=== PATIENT | male | born 1980 | race African-American/Black ===

== ENCOUNTER 2018-04-28 17:11 | Emergency (ER) | payer BC ==
[2018-04-28 17:41] LABS: #Basophils 0.1 thou/uL (0.0-0.2); #Eosinphils 0.2 thou/uL (0.0-0.7); #Lymphocytes 2.1 thou/uL (1.20-3.40); #Monocytes 0.4 thou/uL (0.11-0.59); #Neutrophils 2.7 thou/uL (1.40-6.50); %Basophils 1.5 % (0.0-1.0); %Lymphocytes 38.8 % (21.0-51.0); %Monocytes 6.7 % (0.0-10.0); Hemoglobin 15.3 g/dL (14.0-18.0); Mean Corpuscular HGB CONC 32.8 g/dL (32.0-36.0); Mean Corpuscular Hemoglobin 31.1 pg (27.0-31.0); Mean Corpuscular Volume 94.8 fL (78.0-98.0); Mean Platelet Volume 7.6 fL (7.4-10.4); Platelet Count 234 thou/uL (130-400); RBC Distribution Width 12.3 % (11.5-14.5); Red Blood Cell (RBC) Count 4.91 mill/uL (4.70-6.10); White Blood Cell (WBC) Count 5.4 thou/uL (4.8-10.8)
[2018-04-28 17:55] LABS: ALT (SGPT) 28 U/L (8-55); AST (SGOT) 21 U/L (5-34); Albumin 4.1 g/dL (3.5-5.0); Alkaline Phosphatase 70 U/L (40-150); Anion Gap 12 mmol/L (10-20); BUN (Urea Nitrogen) 22 mg/dL (8.9-20.6); Bilirubin, Total 0.6 mg/dL (0.2-1.2); Calc. Creatinine Clearance 0 mL/min (70-130); Calcium 9.1 mg/dL (7.8-10.44); Carbon Dioxide 24 mmol/L (22-29); Chloride 107 mmol/L (98-107); Estimated GFR-MDRD 73; Globulin 2.9 g/dL (2.4-3.5); Glucose 147 mg/dL (70-105); Lipase 13 U/L (8-78); Potassium 3.8 mmol/L (3.5-5.1); Sodium 139 mmol/L (136-145)
[2018-04-28 17:55] LABS: Bilirubin Negative (Negative); Blood, Urine Negative (Negative); Clarity CLEAR (Clear); Glucose, Urine (Dipstick) Negative (Negative); Leukocyte Negative (Negative); Nitrite Negative (Negative); Protein, Urine (Dipstick) 100 mg/dL (Neg-Trace); pH, Urine 5.5 (5.0-9.0)
[2018-04-28 17:57] LABS: Bacteria/HPF None Seen HPF (None Seen); Hyaline Casts/LPF 4-6 HYALINE CAST LPF (0-3 Hyaline); Pathc Cast-AUWi Flag 0.54 (0-2.49); Squamous Epithelial 0-3 HPF (0-3); WBC/HPF 0-3 HPF (0-3)
[2018-04-28 18:01] LABS: Specific Gravity, Urine 1.048 (1.002-1.036)
[2018-04-28] MEDS ORDERED: Ketorolac Tromethamine 30 MG/ML VIAL ONE (18:01)
[2018-04-28] MEDS ORDERED: Morphine 4 MG/ML VIAL ONE (18:01)
--- NOTE | 2018-04-28 18:38 | RAD ---
CHEST ONE VIEW: 04/28/18 INDICATION: Bilateral flank pain. COMPARISON: Prior exam dated 01/22/14. IMPRESSION: No acute cardiopulmonary abnormality. The examination reveals no consolidation, pleural effusion or p neumothorax. Heart size and osseous structures are within normal limits. POS: [facility]
== END 2018-04-28 19:34 | disposition home or self-care (01) ==
LOC: ERS 17:11
DX: R10.9 Unspecified abdominal pain (principal); J45.901 Unspecified asthma with (acute) exacerbation
CPT/HCPCS: 36415; 71045; 80053; 81003; 81015; 83690; 85025; 85379; 93005; 96361; 96374; 96375; J1885; J2270

== ENCOUNTER 2020-03-23 02:14 | Emergency (ER) | payer BC ==
--- NOTE | 2020-03-23 07:42 | RAD ---
XR Chest 1 View Portable HISTORY: Dyspnea COMPARISON: 04/28/2018 FINDINGS: The heart size is normal. The lungs are well expanded without focal areas of consolidation, pneumothorax or pleural effusions. IMPRESSION: No radiographic evidence of acute cardiopulmonary process.
== END 2020-03-23 03:36 | disposition home or self-care (01) ==
LOC: ERS 02:14
DX: U07.1 COVID-19 (principal)
CPT/HCPCS: 71045; 93005

== ENCOUNTER 2020-03-26 22:11 | Emergency (ER) | payer BC ==
[2020-03-26] MEDS ORDERED: Ketorolac Tromethamine 30 MG/ML VIAL ONE (22:43)
[2020-03-26] MEDS ORDERED: Dexamethasone 10 MG/ML VIAL ONE ×2 (22:43→22:47)
== END 2020-03-26 23:10 | disposition home or self-care (01) ==
LOC: ERS 22:11
DX: U07.1 COVID-19 (principal); R13.10 Dysphagia, unspecified
CPT/HCPCS: 96372; 99284; J1100; J1885

== ENCOUNTER 2020-04-12 22:45 | Emergency (ER) | payer BC | END 2020-04-12 23:26 | disposition home or self-care (01) | LOC: ERS 22:45 | DX: R09.81 Nasal congestion (principal); Z86.16 Personal history of COVID-19 | CPT/HCPCS: 99281 ==

== ENCOUNTER 2020-05-02 00:13 | Emergency (ER) | payer BC | END 2020-05-02 01:08 | disposition home or self-care (01) | LOC: ERS 00:13 | DX: G47.00 Insomnia, unspecified (principal); F41.9 Anxiety disorder, unspecified; R73.03 Prediabetes; J45.909 Unspecified asthma, uncomplicated; Z79.899 Other long term (current) drug therapy | CPT/HCPCS: 99281 ==

== ENCOUNTER 2020-05-28 10:06 | Emergency (ER) | payer BC ==
[2020-05-28] MEDS ORDERED: Ibuprofen 200 MG TAB ONE (12:01)
== END 2020-05-28 12:07 | disposition home or self-care (01) ==
LOC: ERS 10:06
DX: T88.1XXA Other complications following immunization, not elsewhere classified, initial encounter (principal); J45.909 Unspecified asthma, uncomplicated; Z79.899 Other long term (current) drug therapy
CPT/HCPCS: 99283